=== PATIENT | female | born 1975 | race American Indian/Alaskan Native ===

== ENCOUNTER 2018-02-13 01:10 | Emergency (ER) | payer MEDICAID ==
[2018-02-13] MEDS ORDERED: CATAPRES PO ONE (03:00)
--- NOTE | 2018-02-13 04:31 | XRay Report ---
FINAL REPORT PROCEDURE: XR KNEE 3V LT TECHNIQUE: Left knee radiographs, AP, lateral and sunrise views. CPT 32599 HISTORY: left knee pain COMPARISON: No prior studies are available for comparison. FINDINGS: Fracture (s) and/or Dislocation(s): None . Alignment: Normal . 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 Soft tissues: Normal . Bone mineralization: Normal . Foreign bodies: None . IMPRESSION: There are no fractures or malalignments. The soft tissues are unremarkable. There is degenerative change of the knee joint and patellofemoral joint..
--- NOTE | 2018-02-13 04:35 | XRay Report ---
FINAL REPORT PROCEDURE: XR WRIST 2V LT TECHNIQUE: LEFT wrist radiographs, AP and lateral views. HISTORY: Left wrist pain COMPARISON: No prior studies are available for comparison. FINDINGS: Fracture(s)and/or Dislocation(s): None. Alignment: Normal. Joint space(s): Normal. Soft tissues: Normal. Bone mineralization: Normal. Foreign bodies: None. IMPRESSION: Normal Examination
--- NOTE | 2018-02-13 04:38 | XRay Report ---
FINAL REPORT PROCEDURE: XR ELBOW 2V LT TECHNIQUE: LEFT elbow radiographs, including AP, lateral, and oblique views. CPT 59878 HISTORY: Left elbow pain COMPARISON: No prior studies are available for comparison. FINDINGS: Fracture (s) and/or Dislocation(s): None . Alignment: Normal . Joint space(s): Normal . Soft tissues: Normal . Bone mineralization: Normal . Foreign bodies: None . IMPRESSION: Normal Examination
--- NOTE | 2018-02-13 05:28 | Emergency Department Report ---
Upper Extremity - HPI Chief Complaint: Fall Stated Complaint: FALL/LEG PAIN Time Seen by Provider: 02/13/18 03:59 Occurred When: 1 Day Mechanism: Fall Symptoms: Yes Bruising/Ecchymosis (thigh), No Pain with Movement, No Deformity, No Limited Range of Movement Other History: 42-year-old female comes to the emergency room 2 hours prior to injury reports that her right leg went through a deck. Patient reports that she bruised her right thigh and reported left knee elbow and wrist pain. Patient also reports that she has hypertension and has stopped taking her lisinopril as she felt that it does not help. ED Review of Systems ROS: Stated complaint: FALL/LEG PAIN Other details as noted in HPI Musculoskeletal: arthralgia (right knee pain, right elbow pain right wrist pain) ED Past Medical Hx - Past Medical History Hx Hypertension: Yes Hx Asthma: Yes Additional medical history: Morbid Obesity, Neuropathy - Surgical History Additional Surgical History: - Social History Smoking Status: Never Smoker Substance Use Type: None - Medications Home Medications: Home Medications Medication Instructions Recorded Confirmed Last Taken Type Ibuprofen [Motrin 600 MG tab] 600 mg PO Q8H PRN #30 tablet 02/13/18 Unknown Rx Upper Extremity Exam - Exam General: Vital signs noted. No distress. Alert and acting appropriately. Head and Torso: No HEENT Abnormality, No Neck Tenderness, No Chest/Lungs Abnormality, No Abdominal Tenderness, No Back Tenderness Shoulder Exam: Yes Normal Range of Motion in Shoulder, No Shoulder Tenderness, No Clavicle Tenderness, No Shoulder Deformity, No AC Joint Tenderness Arm Exam: No Arm/Humerus Tenderness, No Arm Deformity Elbow: No Elbow Tenderness, No Normal Range of Motion in Elbow, No Elbow Deformity Forearm: No Forearm Tenderness, No Forearm Deformity, No Pain with Pronation, No Pain with Supination Wrist: Yes Normal ROM in Wrist, No Wrist Tenderness, No Wrist Deformity, No Snuffbox Tenderness, No Pain with Axial Thumb Compression CMS Exam: Yes Normal Distal Pulses, Yes Normal Capillary Refill ED Course Vital Signs 02/13/18 02/13/18 02/13/18 01:25 02:46 03:27 Temperature 98.7 F Pulse Rate 118 H 103 H 103 H Respiratory 18 Rate Blood Pressure 196/111 195/110 195/100 O2 Sat by Pulse 96 97 Oximetry ED Medical Decision Making - Radiology Data Radiology results: report reviewed FINAL REPORT PROCEDURE: XR WRIST 2V LT TECHNIQUE: LEFT wrist radiographs, AP and lateral views. HISTORY: Left wrist pain COMPARISON: No prior studies are available for comparison. FINDINGS: Fracture(s)and/or Dislocation(s): None. Alignment: Normal. Joint space(s): Normal. Soft tissues: Normal. Bone mineralization: Normal. Foreign bodies: None. IMPRESSION: Normal Examination Transcribed By: CO Dictated By: VELAI PHAM MD Electronically Authenticated By: VELIA PHAM MD Signed Date/Time: 02/13/18433 DD/ 3 TD/TT: 02/13/18433 FINAL REPORT PROCEDURE: XR KNEE 3V LT TECHNIQUE: Left knee radiographs, AP, lateral and sunrise views. CPT 18704 HISTORY: left knee pain COMPARISON: No prior studies are available for comparison. FINDINGS: Fracture (s) and/or Dislocation(s): None . Alignment: Normal . 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 Soft tissues: Normal . Bone mineralization: Normal . Foreign bodies: None . IMPRESSION: There are no fractures or malalignments. The soft tissues are unremarkable. There is degenerative change of the knee joint and patellofemoral joint.. Transcribed By: CO Dictated By: VELIA PHAM MD Electronically Authenticated By: VELIA PHAM MD Signed Date/Time: 02/13/18429 DD/ 9 TD/TT: 02/13/18429 Ordering Physician: ZACH MCCARTHY MD Date of Service: 02/13/18 Procedure(s): XR elbow 2V LT Accession Number(s): [id number] cc: ZACH MCCARTHY MD Fluoro Time In Minutes: FINAL REPORT PROCEDURE: XR ELBOW 2V LT TECHNIQUE: LEFT elbow radiographs, including AP, lateral, and oblique views. CPT 19460 HISTORY: Left elbow pain COMPARISON: No prior studies are available for comparison. FINDINGS: Fracture (s) and/or Dislocation(s): None . Alignment: Normal . Joint space(s): Normal . Soft tissues: Normal . Bone mineralization: Normal . Foreign bodies: None . IMPRESSION: Normal Examination Transcribed By: CO Dictated By: VELIA PHAM MD Electronically Authenticated By: VELIA PHAM MD Signed Date/Time: 02/13/18436 DD/ 6 TD/TT: 02/13/18436 - Medical Decision Making Patient's been evaluated by this provider fast track. X-rays were ordered which all were negative for any acute abnormalities. Ibuprofen 600 mg ordered for pain management. Referral to [facility] for primary care and his symptoms persist or gets worse. Critical care attestation.: If time is entered above; I have spent that time in minutes in the direct care of this critically ill patient, excluding procedure time. ED Disposition Clinical Impression: Fall through floor Qualifiers: Encounter type: initial encounter Qualified Code(s): W13.3XXA - Fall through floor, initial encounter Disposition: TO HOME OR SELFCARE Is pt being admited?: No Does the pt Need Aspirin: No Condition: Stable Instructions: Knee Pain (ED), Arthralgia (ED) Additional Instructions: Please continue taking her blood pressure medicine as prescribed by your provider. Take pain medication as needed. If her symptoms persist or gets worse please follow up with her primary care provider. I have listed information for primary care. Prescriptions: Ibuprofen [Motrin 600 MG tab] 600 mg PO Q8H PRN #30 tablet PRN Reason: Pain Referrals: SUKHI MOORE MD [Primary Care Provider] - 3-5 Days [facility] [Provider Group] - 3-5 Days AFIA GODFREY MD [Staff Physician] - 3-5 Days
[2018-02-13 05:52] VITALS: BP 146/87
== END 2018-02-13 06:06 | disposition home or self-care (01) ==
LOC: ED 01:10
DX: M25.561 Pain in right knee (principal); M25.521 Pain in right elbow; M25.531 Pain in right wrist; I10 Essential (primary) hypertension; G62.9 Polyneuropathy, unspecified; E66.01 Morbid (severe) obesity due to excess calories; Z68.44 Body mass index [BMI] 60.0-69.9, adult; W17.2XXA Fall into hole, initial encounter; Y93.89 Activity, other specified; Y99.8 Other external cause status; Y92.89 Other specified places as the place of occurrence of the external cause
CPT/HCPCS: 99283

== ENCOUNTER 2019-04-09 21:20 | Emergency (ER) | payer MEDICARE ==
--- NOTE | 2019-04-09 23:07 | Emergency Department Report ---
ED General Adult HPI - General Chief complaint: Skin/Abscess/Foreign Body Stated complaint: LT SHOULDER PAIN, RT EAR SWOLLEN, LT KNEE PAIN Source: patient Mode of arrival: Ambulatory Limitations: No Limitations - History of Present Illness Initial comments: Patient is a 44-year-old -[place] female who presented to the ED with painful swollen slightly erythematous maculopapular nonfluctuant rash on the right temporal area for the last 1 week. Patient denies fever, chills, nausea, vomiting, dizziness, abdominal pain, cough, hearing loss, change in vision or traumatic injury. MD Complaint: Right temporal pain; swollen right temporal rash -: Sudden, week(s) (1) Location: head Radiation: non-radiation Severity scale (0 -10): 6 Quality: aching, sharp, constant Consistency: constant Improves with: none Worsens with: none Associated Symptoms: denies other symptoms, headaches. denies: confusion, chest pain, cough, diaphoresis, fever/chills, loss of appetite, malaise, nausea/vomiting, rash, seizure, shortness of breath, syncope, other Treatments Prior to Arrival: none - Related Data Previous Rx's Medication Instructions Recorded Last Taken Type Ibuprofen [Motrin 600 MG tab] 600 mg PO Q8H PRN #20 tablet 04/09/19 Unknown Rx Sulfamethoxazole/Trimethoprim 1 each PO Q12H #20 tablet 04/09/19 Unknown Rx [Bactrim DS TAB] Allergies Allergy/AdvReac Type Severity Reaction Status Date / Time No Known Allergies Allergy Verified 04/09/19 21:26 ED Review of Systems ROS: Stated complaint: LT SHOULDER PAIN, RT EAR SWOLLEN, LT KNEE PAIN Other details as noted in HPI Constitutional: denies: chills, fever Eyes: denies: eye pain, eye discharge, vision change ENT: ear pain (right), other (right temporal painful swollen rash). denies: throat pain Respiratory: denies: cough, shortness of breath, wheezing Cardiovascular: denies: chest pain, palpitations, dyspnea on exertion, orthopnea Endocrine: no symptoms reported Gastrointestinal: denies: abdominal pain, nausea, vomiting, diarrhea, hematemesis, hematochezia Genitourinary: denies: urgency, dysuria, discharge Musculoskeletal: denies: back pain, joint swelling, arthralgia Skin: rash (swollen painful erythematous rash on right temporal area), change in color. denies: lesions Neurological: headache. denies: weakness, paresthesias, confusion, abnormal gait, vertigo Psychiatric: denies: anxiety, depression Hematological/Lymphatic: denies: easy bleeding, easy bruising ED Past Medical Hx - Past Medical History Hx Hypertension: Yes Hx Asthma: Yes Additional medical history: Morbid Obesity, Neuropathy - Surgical History Additional Surgical History: - Social History Smoking Status: Never Smoker Substance Use Type: None - Medications Home Medications: Home Medications Medication Instructions Recorded Confirmed Last Taken Type Ibuprofen [Motrin 600 MG tab] 600 mg PO Q8H PRN #20 tablet 04/09/19 Unknown Rx Sulfamethoxazole/Trimethoprim 1 each PO Q12H #20 tablet 04/09/19 Unknown Rx [Bactrim DS TAB] ED Physical Exam - General Limitations: No Limitations General appearance: alert, in no apparent distress - Head Head exam: Present: atraumatic, normocephalic, other (Palpable tenderness on right temporal area due to erythematous nonfluctuant maculopapular rash) - Eye Eye exam: Present: normal appearance, PERRL, EOMI Pupils: Present: normal accommodation - ENT ENT exam: Present: normal exam, normal orophraynx, mucous membranes moist, TM's normal bilaterally, normal external ear exam - Neck Neck exam: Present: normal inspection, full ROM - Respiratory Respiratory exam: Present: normal lung sounds bilaterally. Absent: respiratory distress, wheezes, rhonchi, chest wall tenderness, accessory muscle use, decreased breath sounds, prolonged expiratory - Cardiovascular Cardiovascular Exam: Present: regular rate, normal rhythm, normal heart sounds. Absent: systolic murmur, diastolic murmur, rubs, gallop - GI/Abdominal GI/Abdominal exam: Present: soft, normal bowel sounds. Absent: tenderness, guarding, rebound, hyperactive bowel sounds, hypoactive bowel sounds, organomegaly - Extremities Exam Extremities exam: Present: normal inspection, full ROM, normal capillary refill - Back Exam Back exam: Present: normal inspection, full ROM. Absent: tenderness, CVA tenderness (R), CVA tenderness (L), muscle spasm, paraspinal tenderness - Neurological Exam Neurological exam: Present: alert, oriented X3, CN II-XII intact, normal gait, reflexes normal - Psychiatric Psychiatric exam: Present: normal affect, normal mood - Skin Skin exam: Present: warm, dry, intact, rash (Erythematous tender swollen maculopapular rash on right temporal area) ED Course Vital Signs 04/09/19 04/09/19 21:28 21:37 Temperature 97.8 F 97.8 F Pulse Rate 98 H 101 H Respiratory 18 18 Rate Blood Pressure 158/97 158/97 O2 Sat by Pulse 96 100 Oximetry - Reevaluation(s) Reevaluation #1: 04/09/19 23:09 This is a 44-year-old female who presented to the ED with complaint of acute onset persistent painful swollen erythematous maculopapular rash on right temporal area. In the ED, patient is alert and oriented 3 and is not in distress. Patient was discharged home on antibiotics and pain medication based on the physical exam findings of acute folliculitis on the right temporal scalp. Patient was advised to follow-up with her primary care physician in 7-10 days for reevaluation. Patient was advised to return to the ED immediately if symptoms get worse ED Medical Decision Making - Medical Decision Making This is a 44-year-old female who presented to the ED with complaint of acute onset persistent painful swollen erythematous maculopapular rash on right temporal area. In the ED, patient is alert and oriented 3 and is not in distress. Patient was discharged home on antibiotics and pain medication based on the physical exam findings of acute folliculitis on the right temporal scalp. Patient was advised to follow-up with her primary care physician in 7-10 days for reevaluation. Patient was advised to return to the ED immediately if symptoms get worse - Differential Diagnosis acute folliculitis; abscess; cellulitis Critical care attestation.: If time is entered above; I have spent that time in minutes in the direct care of this critically ill patient, excluding procedure time. ED Disposition Clinical Impression: Acute folliculitis, Cellulitis of head or scalp Disposition: DC-01 TO HOME OR SELFCARE Is pt being admited?: No Does the pt Need Aspirin: No Condition: Stable Instructions: Cellulitis (ED), Folliculitis (ED) Additional Instructions: Take medication with food, drink plenty of fluids and follow-up with your primary care physician in 7-10 days for reevaluation. Return to the ED immediately if symptoms get worse. Prescriptions: Sulfamethoxazole/Trimethoprim [Bactrim DS TAB] 1 each PO Q12H #20 tablet Ibuprofen [Motrin 600 MG tab] 600 mg PO Q8H PRN #20 tablet PRN Reason: Pain Referrals: LING BELLO [Primary Care Provider] - 3-5 Days Time of Disposition: 23:13 Print Language: JAPANESE
[2019-04-09 23:24] VITALS: BP 160/98
== END 2019-04-09 23:23 | disposition home or self-care (01) ==
LOC: ED 21:20
DX: L03.811 Cellulitis of head [any part, except face] (principal); L73.9 Follicular disorder, unspecified; I10 Essential (primary) hypertension; J45.909 Unspecified asthma, uncomplicated; E66.01 Morbid (severe) obesity due to excess calories; Z68.44 Body mass index [BMI] 60.0-69.9, adult; Z79.1 Long term (current) use of non-steroidal anti-inflammatories (NSAID)
CPT/HCPCS: 99282